=== PATIENT | female | born 2000 | race Caucasian/White ===

== ENCOUNTER 2022-12-05 08:39 | Emergency (ER) | payer OTHER, MEDICAID, SELFPAY ==
[2022-12-05 08:40] VITALS: BP 126/80; PULSE 98; RESP 16; TEMP 36.3; O2SAT 96
[2022-12-05] MEDS: FAMOTIDINE 20 MG/2 ML VIAL IV PUSH (08:54)
--- NOTE | 2022-12-05 09:13 | ED.ALLEREA ---
HPI - Allergic Reaction General Chief complaint: Allergic Reaction Stated complaint: Allergic reaction Time Seen by Provider: 12/05/22 08:43 History of Present Illness HPI narrative: Pt presents with allergic reaction starting around 0800 today. Pt said she felt warmth and itching in her scalp and spread down her face and neck and she became anxious and SOB. Pt called 911. Per EMS pt was red and had hives on her face and neck and was complaining of SOB. EMS gave epi sq, benadryl IV, solumedrol IV and neb treatment. Pt feels much better now. Pt denies any new soaps, meds, detergents or exposures. Related Data Allergies Allergy/AdvReac Type Severity Reaction Status Date / Time No Known Allergies Allergy Verified 05/20/17 13:01 Review of Systems Review of Systems: All systems reviewed & are unremarkable except as noted in HPI and below Exam Const: General: healthy appearing Nutritional Appearance: well nourished Orientation/consciousness: patient oriented x3 Limitations: no limitations HENMT: Head: normal to inspection Face and sinus: normal facial exam Mouth: Yes Normal oral and palatal mucosa present Throat: posterior oropharynx normal Eyes: Pupils: Equal, round and reactive pupils present EOM: EOMs intact bilaterally Neck: Neck: normal visual inspection Chest: Chest palpation & inspection: normal inspection of the chest Resp: Effort & Inspection: normal respiratory effort Auscultation: clear to auscultation bilaterally Cardio: Rate: regular rate Rhythm: regular rhythm GI: GI Palp: Yes Soft to palpation Auscultation: normal bowel sounds Skin: General skin exam: normal color Rashes: no rashes Neuro: General: patient oriented x3, moves all extremities, no meningeal signs, no focal motor deficits and CN's II-XI intact bilaterally Speech: normal speech Extrem: General: normal to inspection and no clubbing, cyanosis or edema Psych: Mental Status: mental status grossly normal Affect: Anxious affect present Attitude: cooperative Course Vital Signs Vital signs: Vital Signs Temperature 97.4 F L 12/05/22 08:40 Pulse Rate 98 12/05/22 08:40 Respiratory Rate 16 12/05/22 08:40 Blood Pressure 126/80 12/05/22 08:40 Pulse Oximetry 96 12/05/22 08:40 Oxygen Delivery Room Air 12/05/22 08:40 Temperature 97.4 F L 12/05/22 08:40 Pulse Rate 90 12/05/22 09:46 Respiratory Rate 18 12/05/22 09:46 Blood Pressure 132/75 12/05/22 09:46 Pulse Oximetry 99 12/05/22 09:46 Oxygen Delivery Room Air 12/05/22 08:40 MDM - Allergic Reaction MDM Narrative Medical decision making narrative: pt has what sounds like an allergic reaction or hives per EMS report. Pt treated in [place] with benadryl, solumedrol, epi and neb and feels much better. will add pepcid and observe. pt hives are gone has no sob. feels much better. Differential Diagnosis Differential diagnosis: Likely allergic reaction, angioedema and urticaria Discharge Plan Discharge Clinical Impression: Allergic reaction, Urticaria Patient Disposition: Home, Self-Care Condition: Improved Instructions: Antibiotic Form, Urticaria (ED) Prescriptions: New prednisone 10 mg tablets,dose pack 10 mg PO DIRECTED Qty: 21 0RF Rx Instructions: see taper instructions famotidine [Pepcid] 20 mg tablet 20 mg PO BID Qty: 20 0RF Follow-up/Referrals: Bradley,Lyssa Osman, PODODERMATOLOGIST [Primary Care Provider] -
[2022-12-05 09:46] VITALS: BP 132/75; PULSE 90; RESP 18; O2SAT 99
== END 2022-12-05 10:25 | disposition home or self-care (01) ==
PROVIDERS: Emergency Provider Emergency Medicine; PCP Nurse Practitioner Family
DX: T78.40XA Allergy, unspecified, initial encounter (principal); L50.9 Urticaria, unspecified
CPT/HCPCS: 96374; 99284

== ENCOUNTER 2024-06-17 16:45 | Emergency (ER) | payer OTHER, MEDICAID, SELFPAY ==
[2024-06-17 16:53] VITALS: BP 148/91; PULSE 121; RESP 20; TEMP 36.4; O2SAT 100
--- NOTE | 2024-06-17 18:32 | ED.ALLEREA ---
HPI - Allergic Reaction General Chief complaint: Allergic Reaction <Christen Cifuentes APRN - Last Filed: 06/17/24 18:36> Stated complaint: allergic reaction <Christen Cifuentes APRN - Last Filed: 06/17/24 18:36> Time Seen by Provider: 06/17/24 18:15 <Christen Cifuentes APRN - Last Filed: 06/17/24 18:36> Focused HPI: Patient is a 23-year-old female who presents to the ER following an allergic reaction. She reports that she was bowling this afternoon when she started experiencing finger swelling. Patient reports she then started experiencing flushing, swelling, hives, abdominal pain and shortness of breath. She has an EpiPen from a previous anaphylaxis reaction so she administered it to herself around 4:20pm. Patient reports she continues to experience swelling and tingling in her fingers but her other symptoms have decreased. She denies any chest pain, back pain, or wheezing. Patient reports they were unable to identify what caused her anaphylactic reaction 2 years ago. GENERAL: Well-appearing, well-nourished, and in no acute distress. HEAD: Normocephalic, atraumatic. CHEST: Clear to auscultation. ?No respiratory distress. HEART: Regular rate and rhythm.? NEURO: ?Alert and oriented x3. Patient screened in triage and initial orders placed.? ?Additional care and disposition to be based upon?diagnostic testing and treatment. <Christen Cifuentes APRN - Last Filed: 06/17/24 18:36> History of Present Illness HPI narrative: Agree with HPI. Ate chicken fingers, fries, and mint chip blizzard. Then handled bowling balls. <Yon Bills MD - Last Filed: 06/17/24 19:25> Related Data Allergies/adverse reactions: Allergies Allergy/AdvReac Type Severity Reaction Status Date / Time No Known Allergies Allergy Verified 05/20/17 13:01 <Christen Cifuentes APRN - Last Filed: 06/17/24 18:36> Review of Systems Review of Systems: All systems reviewed & are unremarkable except as noted in HPI and below <Yon Bills MD - Last Filed: 06/17/24 19:25> Constitutional: Constitutional: Reports no additional constitutional complaints <Yon Bills MD - Last Filed: 06/17/24 19:25> ENT: Reports system reviewed and no additional complaints, except as documented <Yon Bills MD - Last Filed: 06/17/24 19:25> Cardiovascular: Cardiovascular: Reports no additional cardiovascular complaints <Yon Bills MD - Last Filed: 06/17/24 19:25> Respiratory: Respiratory: Denies cough, Reports dyspnea and Denies wheezing <Yon Bills MD - Last Filed: 06/17/24 19:25> Gastrointestinal: Gastrointestinal: Reports no additional gastrointestinal complaints <Yon Bills MD - Last Filed: 06/17/24 19:25> Integumentary/Breasts: Skin/Breast: Reports pruritus, Reports erythema and Reports rash <Yon Bills MD - Last Filed: 06/17/24 19:25> Neurologic: Reports system reviewed and no additional complaints, except as documented <Yon Bills MD - Last Filed: 06/17/24 19:25> [facility] Past Medical History Medical History: Medical History (Updated 06/17/24 @ 19:24 by Yon Bills MD) Healthy female adult <Christen Cifuentes APRN - Last Filed: 06/17/24 18:36> Surgical History Surgical History: Surgical History (Updated 06/17/24 @ 19:24 by Yon Bills MD) No history of previous surgery <Christen Cifuentes APRN - Last Filed: 06/17/24 18:36> Exam Narrative: GENERAL: Well-appearing, well-nourished, and in no acute distress. HEAD: Normocephalic, atraumatic. ENT: Mucous membranes moist. Normal appearing posterior oropharynx. CHEST: Clear to auscultation. No respiratory distress. HEART: Regular rate and rhythm. Normal peripheral pulses. EXTREMITIES: Normal range of motion. No edema. SKIN: Warm, dry, no rash. NEURO: Alert and oriented x3. PSYCH: Normal mood and affect. <Yon Bills MD - Last Filed: 06/17/24 19:25> Course Course Emergency Course: symptoms have all improved. She is no longer tachycardic. No rash. No wheezing. Appropriate for discharge. She has Benadryl at home which she can take. I will refill her EpiPen. <Yon Bills MD - Last Filed: 06/17/24 19:25> Vital Signs Vital signs: Vital Signs Temperature 97.6 F 06/17/24 16:53 Pulse Rate 121 H 06/17/24 16:53 Respiratory Rate 20 06/17/24 16:53 Blood Pressure 148/91 H 06/17/24 16:53 Pulse Oximetry 100 06/17/24 16:53 Temperature 97.6 F 06/17/24 16:53 Pulse Rate 121 H 06/17/24 16:53 Respiratory Rate 20 06/17/24 16:53 Blood Pressure 148/91 H 06/17/24 16:53 Pulse Oximetry 100 06/17/24 16:53 <Christen Cifuentes APRN - Last Filed: 06/17/24 18:36> Vital Signs Temperature 97.6 F 06/17/24 16:53 Pulse Rate 121 H 06/17/24 16:53 Respiratory Rate 20 06/17/24 16:53 Blood Pressure 148/91 H 06/17/24 16:53 Pulse Oximetry 100 06/17/24 16:53 Temperature 97.6 F 06/17/24 16:53 Pulse Rate 121 H 06/17/24 16:53 Respiratory Rate 20 06/17/24 16:53 Blood Pressure 148/91 H 06/17/24 16:53 Pulse Oximetry 100 06/17/24 16:53 <Yon Bills MD - Last Filed: 06/17/24 19:25> Discharge Plan Discharge Clinical Impression: Allergic reaction <Christen Cifuentes APRN - Last Filed: 06/17/24 18:36> Patient Disposition: Home, Self-Care <Christen Cifuentes APRN - Last Filed: 06/17/24 18:36> Condition: Stable <Christen Cifuentes APRN - Last Filed: 06/17/24 18:36> Instructions: General Allergic Reaction (ED) <Christen Cifuentes APRN - Last Filed: 06/17/24 18:36> Additional Instructions: Return ER if he cannot breathe, he cannot swallow, or you have additional concerns. Your EpiPen has been refilled. Follow-up with your manager of internal audit. <Christen Cifuentes APRN - Last Filed: 06/17/24 18:36> Prescriptions: New epinephrine [EpiPen] 0.3 mg/0.3 mL auto-injector 0.3 mg IM ONCE Qty: 2 0RF Rx Instructions: as a single dose; may repeat once No Action prednisone 10 mg tablets,dose pack 10 mg PO DIRECTED Qty: 21 0RF Rx Instructions: see taper instructions famotidine [Pepcid] 20 mg tablet 20 mg PO BID Qty: 20 0RF <Christen Cifuentes APRN - Last Filed: 06/17/24 18:36> Follow-up/Referrals: Bradley,Lyssa Osman, SCAR [Primary Care Provider] - 1 Week <Christen Cifuentes APRN - Last Filed: 06/17/24 18:36>
[2024-06-17] MEDS: FAMOTIDINE 20 MG TABLET PO (19:22)
[2024-06-17] MEDS: diphenhydrAMINE HCl INJ 50 MG/ML VIAL IM (19:22)
[2024-06-17 19:36] VITALS: BP 121/76; PULSE 96; RESP 20; O2SAT 98; O2SAT 99
[2024-06-17 19:39] VITALS: BP 122/74; PULSE 88; RESP 18; O2SAT 100
== END 2024-06-17 19:40 | disposition home or self-care (01) ==
LOC: ANHED 19:35
PROVIDERS: Emergency Provider Emergency Medicine; PCP Nurse Practitioner Family
DX: T78.40XA Allergy, unspecified, initial encounter (principal); X58.XXXA Exposure to other specified factors, initial encounter
CPT/HCPCS: 96372; 99283; A9270; J1200